=== PATIENT | male | born 1995 | race Two or more races ===

== ENCOUNTER 2016-09-22 15:58 | Emergency (ER) | payer SELFPAY ==
[~2016-09-22] VITALS: Ht 170.2 cm; Wt 68.0 kg
[2016-09-22] MEDS ORDERED: Ketorolac 30mg Inj IV ONE (16:15)
--- NOTE | 2016-09-22 16:17 | Emergency Room Report ---
History of Present Illness General Chief Complaint: Nausea, Vomiting, and Diarrhea Source: Patient Present Illness HPI 21YOM [employer] walk-in with 6 days of no appetite, intermittent abd pain, diarrhea, fever/chills. Pain "jumps around all over" - not localized to one part of abdomen. No history of renal stones. No foreign travel or sick contacts No previous surgery No other medical problems Denies ETOH, drug use Allergies: Coded Allergies: No Known Allergies (Unverified , 09/22/16) Patient History Past Medical History: none Past Surgical History: none Pertinent Family History: none Social History: Denies: alcohol use, drug use, smoking Immunizations: UTD Reviewed Nursing Documentation: PMH: Agreed, PSxH: Agreed Nursing Documentation-PMH Past Medical History: No Stated History Review of Systems All Other Systems: negative except mentioned in HPI Physical Exam Vital Signs Date Time Temp Pulse Resp B/P Pulse Ox O2 Delivery O2 Flow Rate FiO2 09/22/16 16:04 103.3 124 28 147/122 Room Air Sp02 EP Interpretation: reviewed, normal General Appearance: normal inspection, well appearing, no apparent distress, alert, GCS 15, non-toxic, other - Writhing on stretcher but consolable Head: normocephalic, atraumatic Eyes: bilateral eye EOMI, bilateral eye PERRL ENT: normal ENT inspection, hearing grossly normal, normal voice Neck: normal inspection, full range of motion, supple, no bony tend Respiratory: normal inspection, lungs clear, normal breath sounds, no respiratory distress, no retraction, no wheezing Cardiovascular #1: regular rate, rhythm, no edema Gastrointestinal: normal inspection, normal bowel sounds, non tender, soft, no guarding, no hernia Genitourinary: no CVA tenderness Musculoskeletal: normal inspection, back normal, normal range of motion, Parish' s Sign negative Neurologic: normal inspection, alert, oriented x3, responsive, soap maker III-XII nml as tested, motor strength/tone normal, speech normal Psychiatric: normal inspection, judgement/insight normal, mood/affect normal Skin: normal inspection, normal color, no rash Lymphatic: normal inspection Medical Decision Making Diagnostic Impression: Primary Impression: Nausea, vomiting, and diarrhea Additional Impression: Fever Qualified Codes: R50.9 - Fever, unspecified ER Course N/V/D and fever - VS improved here. Afebrile now - HR trended down to <100 after IVF bolus, anti-emetic and analgesia - No leuks. LFTs normal. H&h stable. Lactate 2.2 up to 2.5. - Abd non focal on serial exam - Low suspicion for acute bacterial or surgical process requiring imaging or admission at this point - CT was done in shared decision making but was otherwise normal. unlikely to be appendicitis after 5-6 days of symptoms - Supportive care advised at home with bland diet, clear fluids and PMD followup as needed - Return to ER for worsening pain, specifically to right lower quadrant Last Vital Signs Date Time Temp Pulse Resp B/P Pulse Ox O2 Delivery O2 Flow Rate FiO2 09/22/16 16:04 103.3 124 28 147/122 Room Air Status: improved Disposition: HOME, SELF-CARE Scripts Famotidine (PEPCID) 20 Mg Tablet 20 MG ORAL BID for 7 Days, #14 TAB 0 Refills Prov: ZORAIDA DU M.D. 09/22/16 Ondansetron Odt* (ZOFRAN ODT*) 4 Mg Tab.rapdis 4 MG ORAL EVERY 8 HOURS for 7 Days, #14 TAB 0 Refills Prov: ZORAIDA DU M.D. 09/22/16 ZORAIDA DU M.D. Sep 22, 2016 16:17
[2016-09-22 16:32] LABS: BASOPHILS % (AUTO) 0.9 % (0.0-2.0); EOSINOPHILS % (AUTO) 0.2 % (0.0-3.0); LYMPHOCYTES % (AUTO) 14.9 % (20.0-45.0); MEAN CORPUSCULAR HEMOGLOBIN 28.3 PG (27.0-31.0); MEAN CORPUSCULAR HGB CONC 35.6 G/DL (32.0-36.0); MEAN CORPUSCULAR VOLUME 80 FL (80-99); MEAN PLATELET VOLUME 7.5 FL (6.5-10.1); MONOCYTES % (AUTO) 11.1 % (1.0-10.0); NEUTROPHILS % (AUTO) 72.9 % (45.0-75.0); PLATELET COUNT 225 K/UL (150-450); RED BLOOD COUNT 5.62 M/UL (4.70-6.10); RED CELL DISTRIBUTION WIDTH 11.7 % (11.6-14.8); WHITE BLOOD COUNT 8.7 K/UL (4.8-10.8)
[2016-09-22 16:52] LABS: ALANINE AMINOTRANSFERASE 8 U/L (3-41); ALBUMIN/GLOBULIN RATIO 1.3 (1.0-2.7); ANION GAP 18 (5-15); ASPARTATE AMINO TRANSFERASE 16 U/L (5-40); CALCIUM 9.9 mg/dL (8.6-10.2); CARBON DIOXIDE 22 mEQ/L (20-30); CHLORIDE 96 mEQ/L (98-107); CREATININE 1.2 mg/dL (0.7-1.2); GLOMERULAR FILTRATION RATE > 60 mL/min (>60); HEMOLYSIS 7; LIPASE 17 U/L (< 60); POTASSIUM 3.8 mEQ/L (3.4-4.9); SODIUM 136 mEQ/L (135-145); TOTAL PROTEIN 8.1 g/dL (6.6-8.7)
[2016-09-22 17:01] LABS: REFLEX LACTIC ACID YES OR NO YES
[2016-09-22] MEDS ORDERED: LR 1000ml 1,000 ML IV STA (17:12)
[2016-09-22] MEDS ORDERED: ONDANSETRON ODT4 MG ORAL (17:39)
[2016-09-22] MEDS ORDERED: PEPCID20 MG ORAL (17:39)
[2016-09-22 18:08] VITALS: BP 118/50
[2016-09-22 19:06] VITALS: BP 143/80
[2016-09-22 19:08] LABS: APPEARANCE,URINE CLEAR; KETONES,URINE 1+ (NEGATIVE); LEUKOCYTE ESTERASE ,URINE 1+ (NEGATIVE); NITRITE,URINE NEGATIVE (NEGATIVE); PH,URINE 6 (4.5-8.0); PROTEIN,URINE NEGATIVE (NEGATIVE); UROBILINOGEN,URINE NORMAL MG/DL (0.0-1.0)
[2016-09-22 19:26] LABS: RBC,URINE 0-2 /HPF (0 - 0)
[2016-09-22 19:27] LABS: WBC,URINE 0-2 /HPF (0 - 0)
--- NOTE | 2016-09-23 08:37 | Diagnostic Imaging Report ---
Clinical Indication: Right lower quadrant pain Technique: No oral contrast utilized, per emergency room physician request IV administration nonionic contrast. Venous phase spiral acquisition obtained through the abdomen and pelvis. Multiplanar reconstructions were generated. Total dose length product 735 mGycm. CTDIvol(s) 13 mGy. Dose reduction achieved using automated exposure control Comparison: None Findings: Normal appendix is identified posterior to the cecum. No evidence of diverticulosis or diverticulitis. No free or loculated intraperitoneal air or fluid is evident. No small bowel distention. Multiple round dense foreign bodies are demonstrated, 3 within the ascending colon, one within the ileum. The liver, gallbladder, bile ducts, pancreas, spleen, adrenals, kidneys are unremarkable. No retroperitoneal or mesenteric mass or adenopathy. No pelvic mass or adenopathy. An irregular flat parenchymal opacity is seen in the left lower lobe. The lung bases are otherwise clear. The bones are unremarkable. Impression: Ingested foreign bodies within the colon and distal small bowel. Possibly dense tablets but suspect metallic such as coins. This represents a minor discrepancy from the preliminary report. This was discussed by phone with Dr. Alvarez in the emergency room at the time of interpretation No acute abnormality Irregular opacity left lung base, probably a small area of scarring The remainder of the findings are in agreement with the preliminary interpretation provided overnight by Dr. Colin The CT scanner at [facility] is accredited by the [employer] and the scans are performed using protocols designed to limit radiation exposure to as low as reasonably achievable to attain images of sufficient resolution adequate for diagnostic evaluation.
== END 2016-09-22 19:06 | disposition home or self-care (01) ==
LOC: EMR 16:45
DX: R19.7 Diarrhea, unspecified (principal); R11.2 Nausea with vomiting, unspecified; R50.9 Fever, unspecified; R10.9 Unspecified abdominal pain
CPT/HCPCS: 36415; 74177; 80053; 81003; 83605; 83690; 85025; 96361; 96374; 96375; 99284; J1885; J2405; Q9967; 96360